=== PATIENT | male | born 1965 | race American Indian/Alaskan Native ===

== ENCOUNTER 2021-06-21 18:52 | Emergency (ER) | payer SELFPAY ==
--- NOTE | 2021-06-22 03:46 | XRay Report ---
CHEST 2 VIEWS INDICATION / CLINICAL INFORMATION: Dyspnea. COMPARISON: None available. FINDINGS: SUPPORT DEVICES: None. HEART / MEDIASTINUM: The heart size and pulmonary vasculature are normal. There is an endoluminal sp nt graft involving the aortic arch and entirety of the descending thoracic aorta. No complication is seen. LUNGS / PLEURA: There is minimal left basilar subsegmental atelectasis. The lungs are otherwise clear . There is no evidence of pleural effusion. No pneumothorax. ADDITIONAL FINDINGS: The left hemidiaphragm is mildly elevated. IMPRESSION: 1. Mildly elevated left hemidiaphragm with minimal left basilar subsegmental atelectasis. 2. Intraluminal stent graft in the thoracic aorta without complication. Signer Name: Alphonso Arenas MD Signed: 06/22/2021 3:42 AM Workstation Name: [id number]
--- NOTE | 2021-06-22 03:53 | Emergency Department Report ---
ED Shortness of Breath HPI - General Chief Complaint: Dyspnea/Respdistress Stated Complaint: SHORTNESS OF BREATH Source: patient, EMS Mode of arrival: Stretcher Limitations: No Limitations - History of Present Illness Initial Comments: Patient is a 55-year-old -[place] male with a history of ESRD on hemodialysis, hypertension, who presents to the ED with persistent nasal and sinus congestion, persistent shortness of breath on exertion with, persistent dry cough with intermittent wheezing for the last 2 days. Patient states that he was unable to go to sleep for fear of failing to wake up because of the shortness of breath and cough. Patient denies fever, chills, chest pain, dizziness, syncope, nausea and vomiting or diarrhea, abdominal pain, MD Complaint: shortness of breath, cough -: Sudden, week(s) (2) Radiation: other (CHEST) Severity: moderate Pain Scale: 0 Quality: other Consistency: intermittent (Chest tightness) Improves With: nothing Worsens With: lying flat, exertion, coughing Known History Of: diabetes, other (ESRD on hemodialysis) Associated Symptoms: denies other symptoms, cough Treatments Prior to Arrival: none - Related Data Home Oxygen Therapy: No Previous Rx's Medication Instructions Recorded Last Taken Type Albuterol Sulfate [Proventil Hfa] 1 - 2 puff IH Q6H PRN #1 hfa.aer.ad 06/22/21 Unknown Rx ED Review of Systems ROS: Stated complaint: SHORTNESS OF BREATH Other details as noted in HPI Constitutional: denies: chills, fever Eyes: denies: eye pain, eye discharge, vision change ENT: denies: ear pain, throat pain Respiratory: no symptoms reported, cough, shortness of breath. denies: wheezing Cardiovascular: denies: chest pain, palpitations Endocrine: no symptoms reported Gastrointestinal: denies: abdominal pain, nausea, diarrhea Genitourinary: denies: urgency, dysuria Musculoskeletal: denies: back pain, joint swelling, arthralgia Skin: denies: rash, lesions Neurological: denies: headache, weakness, paresthesias Psychiatric: denies: anxiety, depression Hematological/Lymphatic: denies: easy bleeding, easy bruising ED Past Medical Hx - Past Medical History Hx Hypertension: Yes Hx Renal Disease: Yes Hx COPD: Yes Additional medical history: AAA, - Surgical History Additional Surgical History: AAA - Social History Smoking Status: Current Every Day Smoker Substance Use Type: Cocaine - Medications Home Medications: Home Medications Medication Instructions Recorded Confirmed Last Taken Type Albuterol Sulfate [Proventil Hfa] 1 - 2 puff IH Q6H PRN #1 hfa.aer.ad 06/22/21 Unknown Rx ED Physical Exam - General Limitations: No Limitations General appearance: alert, in no apparent distress - Head Head exam: Present: atraumatic, normocephalic, normal inspection - Eye Eye exam: Present: normal appearance, PERRL, EOMI Pupils: Present: normal accommodation - ENT ENT exam: Present: normal exam, normal orophraynx, mucous membranes moist, TM's normal bilaterally, normal external ear exam - Neck Neck exam: Present: normal inspection, full ROM - Respiratory Respiratory exam: Present: normal lung sounds bilaterally. Absent: respiratory distress, wheezes, rales, rhonchi, chest wall tenderness, accessory muscle use, decreased breath sounds, prolonged expiratory - Cardiovascular Cardiovascular Exam: Present: regular rate, normal rhythm, normal heart sounds. Absent: systolic murmur, diastolic murmur, rubs, gallop - GI/Abdominal GI/Abdominal exam: Present: soft, normal bowel sounds. Absent: tenderness, guarding, rebound, hyperactive bowel sounds, hypoactive bowel sounds, mass - Extremities Exam Extremities exam: Present: normal inspection, full ROM, normal capillary refill - Back Exam Back exam: Present: normal inspection, full ROM. Absent: tenderness, CVA tenderness (R), CVA tenderness (L), muscle spasm, paraspinal tenderness, vertebral tenderness - Neurological Exam Neurological exam: Present: alert, oriented X3, CN II-XII intact, normal gait, reflexes normal - Psychiatric Psychiatric exam: Present: normal affect, normal mood, anxious - Skin Skin exam: Present: warm, dry, intact, normal color. Absent: rash ED Course Vital Signs 06/21/21 19:25 Temperature 98.6 F Pulse Rate 82 Respiratory 22 Rate Blood Pressure 162/83 O2 Sat by Pulse 95 Oximetry ED Medical Decision Making - Radiology Data Radiology results: report reviewed, image reviewed Study Comments [facility] [address] [place] [address] XRay Report Signed Patient: WENDIE PEREZ MR#: [id number] : 1965 Acct:[id number] Age/Sex: 55 / M ADM Date: 06/21/21 Loc: ED Attending Dr: Ordering Physician: ROBBI DOMINGUEZ Date of Service: 06/22/21 Procedure(s): XR chest routine 2V Accession Number(s): [id number] cc: ROBBI DOMINGUEZ Fluoro Time In Minutes: CHEST 2 VIEWS INDICATION / CLINICAL INFORMATION: Dyspnea. COMPARISON: None available. FINDINGS: SUPPORT DEVICES: None. HEART / MEDIASTINUM: The heart size and pulmonary vasculature are normal. There is an endoluminal stent graft involving the aortic arch and entirety of the descending thoracic aorta. No complication is seen. LUNGS / PLEURA: There is minimal left basilar subsegmental atelectasis. The lungs are otherwise clear. There is no evidence of pleural effusion. No pneumothorax. ADDITIONAL FINDINGS: The left hemidiaphragm is mildly elevated. IMPRESSION: 1. Mildly elevated left hemidiaphragm with minimal left basilar subsegmental atelectasis. 2. Intraluminal stent graft in the thoracic aorta without complication. Signer Name: Alphonso Arenas MD Signed: 06/22/2021 3:42 AM Workstation Name: [id number] Transcribed By: RT Dictated By: Alphonso Arenas MD Electronically Authenticated By: Alphonso Arenas MD Signed Date/Time: 06/22/21341 DD/ 0 TD/TT: - Medical Decision Making This is a 55-year-old -Sy[place] male with a history of ESRD on hemodialysis, hypertension, who presents to the ED with persistent nasal and sinus congestion, persistent shortness of breath on exertion with, persistent dry cough with intermittent wheezing for the last 2 days. Patient states that he was unable to go to sleep for fear of failing to wake up because of the shortness of breath and cough. In the ED, patient is alert and oriented x3 and is not in any distress. Patient is hemodynamically stable. Chest x-ray showed no acute cardiopulmonary abnormalities or pneumonitis. Patient will discharge home on medications and advised to follow-up with her primary care physician in 5 to 7 days for reevaluation. Patient was advised return to the ED immediately if symptoms get worse. - Differential Diagnosis COPD; Bronchitis; URI; Covid-19; pneumonia Critical care attestation.: If time is entered above; I have spent that time in minutes in the direct care of this critically ill patient, excluding procedure time. ED Disposition Clinical Impression: Shortness of breath, Acute exacerbation of COPD with asthma Disposition: 01 HOME / SELF CARE / HOMELESS Is pt being admited?: No Does the pt Need Aspirin: No Condition: Stable Instructions: Cough, Adult, [id number], Chronic Obstructive Pulmonary Disease Exacerbation, [id number] Additional Instructions: Chest x-ray shows no acute pulmonary abnormalities or pneumonitis. Therefore use the albuterol inhaler as needed, follow-up with your primary care physician in 5 to 7 days for reevaluation. Return to the emergency department immediately if symptoms get worse. Prescriptions: Albuterol Sulfate [Proventil Hfa] 1 - 2 puff IH Q6H PRN #1 hfa.aer.ad PRN Reason: Shortness Of Breath Referrals: [facility] [Provider Group] - 3-5 Days Time of Disposition: 03:55 Print Language: VIETNAMESE
[2021-06-22 04:39] VITALS: BP 156/86
== END 2021-06-22 04:05 | disposition home or self-care (01) ==
LOC: EDBD → ED 18:52
DX: J44.1 Chronic obstructive pulmonary disease with (acute) exacerbation (principal); I10 Essential (primary) hypertension; F17.200 Nicotine dependence, unspecified, uncomplicated; F14.10 Cocaine abuse, uncomplicated
CPT/HCPCS: 71046; 99283